=== PATIENT | female | born 1965 | race Caucasian/White ===

== ENCOUNTER → 2018-09-27 | Outpatient (CLI) | payer SELFPAY ==
[2018-09-28 11:56] LABS: TRICYCLIC ANTIDEPRESS URINE NEGATIVE
== END ==
LOC: ZCOL.LAB 17:16
PROVIDERS: Family Medicine
DX: Z51.81 Encounter for therapeutic drug level monitoring (principal)

== ENCOUNTER → 2018-11-24 | Outpatient (CLI) | payer SELFPAY | LOC: ZCOL.LAB 17:09 | DX: Z51.81 Encounter for therapeutic drug level monitoring (principal) ==

== ENCOUNTER 2018-12-10 16:09 | Emergency (ER) | payer SELFPAY ==
[~2018-12-10] VITALS: Ht 157.5 cm; Wt 47.7 kg
[2018-12-10 16:15] VITALS: BP 158/95; TEMP 98.1
[2018-12-10] MEDS ORDERED: NORCO 325 MG-51 TAB PO (17:24)
[2018-12-10] MEDS ORDERED: FLEXERIL 1010 MG/TAB PO (17:24)
[2018-12-10] MEDS ORDERED: MEDROL 4MG DOSPA4 MG PO (17:24)
[2018-12-10] MEDS ORDERED: TOPAMAX 25MG25 M1 PO (17:25)
[2018-12-10 17:42] VITALS: PULSE 72
== END 2018-12-10 17:42 | disposition home or self-care (01) ==
LOC: COL.ER 16:09
DX: S39.012A Strain of muscle, fascia and tendon of lower back, initial encounter (principal); R56.9 Unspecified convulsions; F41.9 Anxiety disorder, unspecified; F17.210 Nicotine dependence, cigarettes, uncomplicated; G90.09 Other idiopathic peripheral autonomic neuropathy; Z90.49 Acquired absence of other specified parts of digestive tract; Z90.710 Acquired absence of both cervix and uterus; Z98.890 Other specified postprocedural states; Z98.84 Bariatric surgery status; Z88.5 Allergy status to narcotic agent; X58.XXXA Exposure to other specified factors, initial encounter
CPT/HCPCS: J1885

== ENCOUNTER 2018-12-21 18:25 | Emergency (ER) | payer SELFPAY ==
[~2018-12-21] VITALS: Ht 157.5 cm; Wt 49.1 kg
[~2018-12-21 18:25] MED LIST: FLEXERIL 1010 MG/TAB PO; MEDROL 4MG DOSPA4 MG PO; NORCO 325 MG-51 TAB PO; TOPAMAX 25MG25 M1 PO
[2018-12-21 18:40] VITALS: TEMP 97.7
[2018-12-21 21:50] LABS: BASO # 0.1 (0.0-0.2); BASO % 0.9 % (0.0-2.0); EOS # 0.5 (0.0-0.7); GRAN # 6.2 (1.4-6.5); GRAN % 66.8 % (42.2-75.2); HEMATOCRIT 40.5 % (37.0-47.0); HEMOGLOBIN 13.2 g/dl (12.5-16.0); LYMPH # 1.9 (1.2-3.4); LYMPH % 20.2 % (20.0-51.0); MEAN CELL VOLUME 85 fl (80.0-100.0); MEAN CORPUSCULAR HEMOGLOBIN 28 pg (27.0-31.0); MEAN CORPUSCULAR HGB CONC 33 g/dl (33.0-37.0); MEAN PLATELET VOLUME 9.4 fl (7.4-10.4); MONO # 0.6 (0.1-0.6); MONO % 6.9 % (1.7-9.3); PLATELET COUNT 311 K/mm3 (130-400); RED BLOOD COUNT 4.74 M/mm3 (4.10-5.30); REDCELL DISTRIBUTION WIDTH-CV 15.3 % (11.5-14.5)
[2018-12-21 22:00] LABS: ALANINE AMINOTRANSFERASE 15 U/L (9-52); ALBUMIN 4.2 gm/dL (3.5-5.0); ALKALINE PHOSPHATASE 130 U/L (50-136); ANION GAP 7 mmol/L (7-16); AST,SGOT 19 U/L (15-37); BILIRUBIN,TOTAL 0.3 mg/dL (0.0-1.0); BLOOD UREA NITROGEN 9 mg/dL (7-17); CALCIUM 9.8 mg/dL (8.4-10.2); CARBON DIOXIDE 21 mmol/L (22-30); CHLORIDE 108 mmol/L (98-107); CREATININE, serum 0.66 mg/dL (0.52-1.25); GLUCOSE 93 mg/dL (74-106); LIPASE 187 U/L (23-300); SODIUM 137 mmol/L (137-145); TOTAL PROTEIN 7.6 gm/dL (6.4-8.2)
[2018-12-21 22:07] LABS: C-REACTIVE PROTEIN < 0.5 mg/dL (0.0-0.9)
[2018-12-21] MEDS ORDERED: NORCO 325 MG-51 TAB PO (22:58)
[2018-12-21] MEDS ORDERED: CARAFATE S1 GM/10 ML PO (22:58)
[2018-12-21] MEDS ORDERED: NEXIUM 40MG40 MG PO (22:58)
[2018-12-21] MEDS ORDERED: ROXICODONE 55 MG/TAB PO (23:05)
[2018-12-21 23:54] VITALS: BP 122/82; PULSE 86
== END 2018-12-21 23:57 | disposition home or self-care (01) ==
LOC: COL.ER 18:25
PROVIDERS: Emergency Medicine
DX: R10.11 Right upper quadrant pain (principal); R10.12 Left upper quadrant pain; Z90.49 Acquired absence of other specified parts of digestive tract
CPT/HCPCS: C9113; J0780; J1170; J7030; Q9967

== ENCOUNTER 2019-02-05 14:32 | Emergency (ER) | payer SELFPAY ==
[~2019-02-05] VITALS: Ht 157.5 cm; Wt 50.0 kg
[~2019-02-05 14:32] MED LIST changes: +CARAFATE S1 GM/10 ML PO; +NEXIUM 40MG40 MG PO; +ROXICODONE 55 MG/TAB PO
[2019-02-05 14:50] VITALS: BP 123/68; TEMP 99.1
[2019-02-05] MEDS ORDERED: PAXIL 20MG20 MG PO (16:08)
[2019-02-05] MEDS ORDERED: PRILOSEC 20MG20 MG PO (16:08)
[2019-02-05] MEDS ORDERED: BUSPAR DIVIDOSE15 MG PO (16:08)
[2019-02-05] MEDS ORDERED: NEXIUM 40MG40 MG PO (16:51)
[2019-02-05] MEDS ORDERED: OXAYDO5 MG PO (16:51)
[2019-02-05] MEDS ORDERED: OXY IR5 MG PO (17:36)
[2019-02-05 17:40] VITALS: PULSE 74
== END 2019-02-05 17:41 | disposition home or self-care (01) ==
LOC: COL.ER 14:32
DX: K29.70 Gastritis, unspecified, without bleeding (principal); K21.9 Gastro-esophageal reflux disease without esophagitis; F17.210 Nicotine dependence, cigarettes, uncomplicated; G43.909 Migraine, unspecified, not intractable, without status migrainosus; Z90.710 Acquired absence of both cervix and uterus; Z98.890 Other specified postprocedural states; Z98.84 Bariatric surgery status
CPT/HCPCS: J3010

== ENCOUNTER → 2019-05-10 | Outpatient (CLI) | payer BC ==
[~2019-05-10] MED LIST changes: +BUSPAR DIVIDOSE15 MG PO; +OXAYDO5 MG PO; +OXY IR5 MG PO; +PAXIL 20MG20 MG PO; +PRILOSEC 20MG20 MG PO
== END ==
LOC: COL.RAD 08:47
DX: M50.321 Other cervical disc degeneration at C4-C5 level (principal); M48.02 Spinal stenosis, cervical region; M50.222 Other cervical disc displacement at C5-C6 level; M25.78 Osteophyte, vertebrae; M54.81 Occipital neuralgia; R90.82 White matter disease, unspecified
CPT/HCPCS: A9585

== ENCOUNTER 2019-06-14 12:09 | Outpatient (CLI) | payer BC ==
[2019-06-14] VITALS (7 sets, daily range): BP systolic 123–140; BP diastolic 83–93; PULSE 50–60; TEMP 98.5
[~2019-06-14] VITALS: Ht 157.5 cm; Wt 54.8 kg
[~2019-06-14 12:09] MED LIST changes: +BUSPAR 30MG30 MG/TAB PO; +D3-5050000 IU PO; +FERROUS SU325 MG/TAB PO; +FOLIC ACID 11 MG/TA1 PO; +PAXIL 10MG10 MG PO; +PAXIL40 MG PO; +PRENATAL 191 TAB PO; +TOPAMAX50 MG PO; +VITAMIN B11000 MCG/M IM; +VTAMINC250TA PO; +ZANAFLEX CAPSULE4 MG PO
--- NOTE | 2019-06-14 13:00 | NUR ---
back from Radiology. Alert and oriented, c/o pain to low back and right leg. Dr. Simon order Oxycontin 5 mg po. VSS. . One bandaid to back noted CD&I.
--- NOTE | 2019-06-14 13:10 | NUR ---
Pt reports pain 07/08, Noemy Costa RN is reporting to Dr. Simon.
[2019-06-14 13:32] LABS: GLUCOSE,CSF 50 mg/dL (40-70); TOTAL PROTEIN,CSF 40 mg/dL (15-45)
[2019-06-14 13:49] LABS: CSF APPEARANCE CLEAR; CSF COLOR COLORLESS; CSF RBC 8 /mm3 (0-0)
[2019-06-14 13:50] LABS: CSF MONONUCLEAR 100 % (70-100); CSF POLYMORPHONUCLEAR 0 % (0-6)
--- NOTE | 2019-06-14 13:55 | NUR ---
Pt reports pain decreased to 4/10. Pt reports this is common for her.
--- NOTE | 2019-06-14 14:10 | NUR ---
Pt has ambulated, voided and swati PO intake s n/v.
--- NOTE | 2019-06-14 14:15 | NUR ---
Pt discharged per w/c by nurse with friend.
[2019-06-16 13:53] LABS: CSF IGG/ALBUMIN 0.1 (<=0.21); CSF,IGG 1.6 mg/dL (<=8.1)
[2019-06-16 14:57] LABS: CSF-IGG INDEX 0.43 (<=0.85); IGG/ALBUMIN SERUM 0.23 (<=0.40)
== END 2019-06-14 16:03 | disposition home or self-care (01) ==
LOC: COL.RAD 12:09
PROVIDERS: Psychiatry & Neurology Neurology
DX: G37.9 Demyelinating disease of central nervous system, unspecified (principal); R90.82 White matter disease, unspecified

== ENCOUNTER 2019-10-27 16:31 | Emergency (ER) | payer BC ==
[~2019-10-27] VITALS: Ht 157.5 cm; Wt 49.1 kg
[2019-10-27 16:53] VITALS: TEMP 98.4
[2019-10-27 17:29] LABS: COLLECTION METHOD CLEAN CATCH
[2019-10-27 17:36] LABS: BASO % 0.8 % (0.0-2.0); EOS # 0.2 (0.0-0.7); EOS % 4.3 % (0-4.0); GRAN # 3.1 (1.4-6.5); GRAN % 59.5 % (42.2-75.2); HEMATOCRIT 38.4 % (37.0-47.0); HEMOGLOBIN 12.7 g/dl (12.5-16.0); LYMPH # 1.3 (1.2-3.4); LYMPH % 26.2 % (20.0-51.0); MEAN CELL VOLUME 92 fl (80.0-100.0); MEAN CORPUSCULAR HEMOGLOBIN 31 pg (27.0-31.0); MEAN CORPUSCULAR HGB CONC 33 g/dl (33.0-37.0); MEAN PLATELET VOLUME 9.3 fl (7.4-10.4); MONO # 0.5 (0.1-0.6); PLATELET COUNT 199 K/mm3 (130-400); RED BLOOD COUNT 4.16 M/mm3 (4.10-5.30); REDCELL DISTRIBUTION WIDTH-CV 14.1 % (11.5-14.5)
[2019-10-27 17:37] LABS: MUCOUS Present /lpf; PH 6 (5-8); SQUAMOUS EPITHELIAL 0-2 /hpf; URINE APPEARANCE Hazy; URINE BACTERIA None Seen /hpf; URINE BILIRUBIN Negative (NEGATIVE); URINE BLOOD Negative (NEGATIVE); URINE COLOR Yellow; URINE GLUCOSE Negative (NEGATIVE); URINE KETONE Negative (NEGATIVE); URINE LEUKOCYTE ESTERASE Negative (NEGATIVE); URINE NITRATE Negative (NEGATIVE); URINE PROTEIN(semi-quant) Negative (NEGATIVE); URINE RBC 0-2 /hpf; URINE UROBILINOGEN Negative (NEGATIVE)
[2019-10-27 17:47] LABS: ALANINE AMINOTRANSFERASE 34 U/L (9-52); ALBUMIN 3.5 gm/dL (3.5-5.0); ALKALINE PHOSPHATASE 92 U/L (50-136); ANION GAP 5 mmol/L (7-16); AST,SGOT 29 U/L (15-37); BILIRUBIN,TOTAL 0.1 mg/dL (0.0-1.0); BLOOD UREA NITROGEN 12 mg/dL (7-17); C-REACTIVE PROTEIN < 0.5 mg/dL (0.0-0.9); CALCIUM 9.1 mg/dL (8.4-10.2); CARBON DIOXIDE 23 mmol/L (22-30); CHLORIDE 111 mmol/L (98-107); CREATININE, serum 0.69 (0.52-1.25); GLUCOSE 78 mg/dL (74-106); POTASSIUM 3.6 mmol/L (3.4-5.0); SODIUM 140 mmol/L (137-145); TOTAL PROTEIN 6.3 gm/dL (6.4-8.2)
[2019-10-27] MEDS ORDERED: OMNICEF 300MG300 MG PO (17:51)
[2019-10-27 18:03] LABS: ERYTHROCYTE SEDIMENTATION RATE 9 mm/hr (0-30)
[2019-10-27 18:17] VITALS: BP 148/88; PULSE 81
== END 2019-10-27 18:15 | disposition home or self-care (01) ==
LOC: COL.ER 16:31
PROVIDERS: Physician Assistant
DX: S00.211A Abrasion of right eyelid and periocular area, initial encounter (principal); X58.XXXA Exposure to other specified factors, initial encounter
CPT/HCPCS: J1885

== ENCOUNTER → 2019-11-14 | Outpatient (CLI) | payer BC ==
[~2019-11-14] MED LIST changes: +CARAFATE 1GM1 G PO; +CYMBALTA 60MG60 MG PO; +OMNICEF 300MG300 MG PO; +PERCOCET 325 MG1 TA3 PO; +PRIL40 PO; +PROBIOTIC FORMU1 CAP PO
== END ==
LOC: COL.RAD 11-10 10:00
DX: J98.4 Other disorders of lung (principal); K31.89 Other diseases of stomach and duodenum; Z90.49 Acquired absence of other specified parts of digestive tract; Z90.710 Acquired absence of both cervix and uterus
CPT/HCPCS: Q9967

== ENCOUNTER 2019-11-15 08:50 | Emergency (ER) | payer BC ==
[~2019-11-15] VITALS: Ht 157.5 cm; Wt 46.8 kg
[~2019-11-15 08:50] MED LIST changes: -CARAFATE 1GM1 G PO; -CYMBALTA 60MG60 MG PO; -PERCOCET 325 MG1 TA3 PO; -PRIL40 PO; -PROBIOTIC FORMU1 CAP PO
[2019-11-15 08:58] VITALS: TEMP 97
[2019-11-15] MEDS ORDERED: PERCOCET 325 MG1 TA3 PO (09:54)
[2019-11-15] MEDS ORDERED: CYMBALTA 60MG60 MG PO (09:57)
[2019-11-15] MEDS ORDERED: CARAFATE 1GM1 G PO ×2 (09:58→10:31)
[2019-11-15 09:59] LABS: BASO % 0.7 % (0.0-2.0); EOS # 0.2 (0.0-0.7); EOS % 2.8 % (0-4.0); GRAN # 4.3 (1.4-6.5); GRAN % 70.7 % (42.2-75.2); HEMATOCRIT 41.8 % (37.0-47.0); HEMOGLOBIN 13.6 g/dl (12.5-16.0); LYMPH # 1.1 (1.2-3.4); LYMPH % 18.7 % (20.0-51.0); MEAN CELL VOLUME 95 fl (80.0-100.0); MEAN CORPUSCULAR HEMOGLOBIN 31 pg (27.0-31.0); MEAN CORPUSCULAR HGB CONC 33 g/dl (33.0-37.0); MEAN PLATELET VOLUME 9.7 fl (7.4-10.4); MONO # 0.4 (0.1-0.6); MONO % 6.8 % (1.7-9.3); PLATELET COUNT 255 K/mm3 (130-400); RED BLOOD COUNT 4.42 M/mm3 (4.10-5.30); REDCELL DISTRIBUTION WIDTH-CV 14.7 % (11.5-14.5)
[2019-11-15] MEDS ORDERED: PROBIOTIC FORMU1 CAP PO (09:59)
[2019-11-15 10:12] LABS: ALBUMIN 4.4 gm/dL (3.5-5.0); BILIRUBIN,TOTAL 0.2 mg/dL (0.0-1.0); C-REACTIVE PROTEIN 2.5 mg/dL (0.0-0.9); CALCIUM 9.8 mg/dL (8.4-10.2); CREATININE, serum 0.8 (0.52-1.25); POTASSIUM 3.6 mmol/L (3.4-5.0); TOTAL PROTEIN 7.9 gm/dL (6.4-8.2)
[2019-11-15] MEDS ORDERED: PRIL40 PO (10:31)
[2019-11-15 11:28] VITALS: BP 138/92; PULSE 72
== END 2019-11-15 11:45 | disposition home or self-care (01) ==
LOC: COL.ER 08:50
PROVIDERS: Emergency Medicine
DX: K92.1 Melena (principal); R19.7 Diarrhea, unspecified; Z90.89 Acquired absence of other organs; Z98.84 Bariatric surgery status
CPT/HCPCS: C9113; J2405; J3010; J7030

== ENCOUNTER 2020-04-02 07:35 | Day surgery (SDC) | payer BC ==
[~2020-04-02] VITALS: Ht 157.5 cm; Wt 51.9 kg
[~2020-04-02 07:35] MED LIST changes: +CARAFATE 1GM1 G PO; +CYMBALTA 60MG60 MG PO; +PERCOCET 325 MG1 TA3 PO; +PRIL40 PO; +PROBIOTIC FORMU1 CAP PO
[2020-04-02] MEDS ORDERED: DAZIDOX10 MG PO (07:51)
[2020-04-02] MEDS ORDERED: TOPAMAX 100MG100 M1 PO (07:52)
[2020-04-02] MEDS ORDERED: SINEQUAN 1010 MG/CAP PO (07:53)
[2020-04-02] MEDS ORDERED: PROAIR HFA0.09 MG/AC IH (07:55)
[2020-04-02 07:57] VITALS: BP 105/76; PULSE 86; TEMP 97.3
[2020-04-02 10:10] VITALS: BP 109/80; PULSE 66; TEMP 97
--- NOTE | 2020-04-02 10:10 | NUR ---
The patient arrived back to [facility] from the endoscopy suite. The patient appears alert and oriented and ambulated from the cart to the recliner in her room with the stand by assistance of two nurses and appeared to tolerate the activity well. Post procedure vital signs were started at this time. The patient requests to try some grape juice, orange juice and a blueberry muffin at this time. Call light is within reach. Will continue to monitor the patient.
[2020-04-02 10:27] VITALS: BP 113/76; PULSE 68
--- NOTE | 2020-04-02 10:27 | NUR ---
The patient appears to be tolerating the food and drink well. Call light remains within reach. Vital signs appear stable. Will continue to monitor the patient.
[2020-04-02 10:40] VITALS: BP 114/81; PULSE 85
--- NOTE | 2020-04-02 10:40 | NUR ---
Discharge instructions were reviewed with the patient at this time. She verbalized understanding and has no questions for the nurse at this time. The patient's IV to her right hand was removed and a pressure dressing was applied to the site. The patient is to get dressed and notify the staff when she is ready to be escorted out. The patient is going to contact her friend to pick her up.
--- NOTE | 2020-04-02 10:50 | NUR ---
The patient was escorted out via wheelchair to a private vehicle by BRANDON Rawls. The patient's belongings and discharge paperwork were sent with her. The patient's friend is present to drive her home.
== END 2020-04-02 10:50 | disposition home or self-care (01) ==
LOC: SDCO 07:35
DX: K52.832 Lymphocytic colitis (principal); K64.0 First degree hemorrhoids; E11.9 Type 2 diabetes mellitus without complications; F17.210 Nicotine dependence, cigarettes, uncomplicated; G89.29 Other chronic pain; R51 Headache; R56.9 Unspecified convulsions; M48.00 Spinal stenosis, site unspecified; Z98.84 Bariatric surgery status; Z79.899 Other long term (current) drug therapy; Z88.6 Allergy status to analgesic agent; Z88.5 Allergy status to narcotic agent; Z88.0 Allergy status to penicillin
CPT/HCPCS: J2704; J7120

== ENCOUNTER 2020-07-03 15:54 | Emergency (ER) | payer BC ==
[~2020-07-03] VITALS: Ht 157.5 cm; Wt 50.0 kg
[~2020-07-03 15:54] MED LIST changes: +DAZIDOX10 MG PO; +PROAIR HFA0.09 MG/AC IH; +SINEQUAN 1010 MG/CAP PO; +TOPAMAX 100MG100 M1 PO
[2020-07-03 16:00] VITALS: BP 118/82; PULSE 88; TEMP 99
[2020-07-03] MEDS ORDERED: FLEXERIL 1010 MG/TAB PO (16:23)
== END 2020-07-03 16:37 | disposition left against medical advice (07) ==
LOC: COL.ER 15:54
DX: M62.838 Other muscle spasm (principal); K21.9 Gastro-esophageal reflux disease without esophagitis; F41.9 Anxiety disorder, unspecified; F17.210 Nicotine dependence, cigarettes, uncomplicated; Z90.710 Acquired absence of both cervix and uterus; Z90.49 Acquired absence of other specified parts of digestive tract; Z98.890 Other specified postprocedural states